=== PATIENT | female | born 1970 | race Caucasian/White ===

== ENCOUNTER → 2018-02-10 08:14 | Outpatient (CLI) | payer BC, SELFPAY ==
[2018-02-10 09:59] LABS: Cholesterol 320 mg/dL (140-199); HDL Cholesterol 58 mg/dL (40-60); LDL Cholesterol Calculated 192 mg/dL (<100); Triglycerides 349 mg/dL (35-150)
== END ==
PROVIDERS: PCP Family Medicine; Visit Provider Naturopath
DX: E78.5 Hyperlipidemia, unspecified (principal)
CPT/HCPCS: 36415; 80061

== ENCOUNTER → 2018-02-26 19:17 | Outpatient (CLI) | payer BC, SELFPAY ==
--- NOTE | 2018-02-26 19:27 | DI.MRI.S_ITS ---
PROCEDURE: MR LUMBAR SPINE WO CON INDICATIONS: LOW BACK PAIN TECHNIQUE: Noncontrast sagittal T1 spin echo and T2 fast echo, sagittal STIR, axial T1 and T2 fast spin echo through the lumbar spine. In cases with scoliosis, additional coronal T2 fast spin echo may be performed. COMPARISON: None. FINDINGS: Image quality: Excellent. Alignment and Curvature: There is normal bony alignment. Bone Marrow: There are degenerative endplate signal changes. Multiple Schmorl's nodes are present in lower thoracic and lumbar spine. Mild compression deformity of T12, L1, L2 and L4 without marrow edema. Spinal Cord: Conus medullaris terminates at the L1 level. Visualized cord demonstrates normal signal and size. Paraspinous Soft Tissues: No paravertebral masses. T11-T12: Moderate loss of disc height and disc desiccation. The central canal is mildly narrowed. No foraminal stenosis. T12-L1: Moderate loss of disc height and disc desiccation. There is broad posterior disc bulge and disc osteophyte complex. The central canal is bnyt-qi-wspprpolui narrowed. Mild bilateral foraminal stenosis. L1-L2: Preserved disc height. Mild/moderate disc desiccation. There is broad posterior disc bulge and disc osteophyte complex. There is superimposed posterior central annular tear. The central canal is mildly narrowed. Mild to moderate bilateral foraminal stenosis. L2-L3: Preserved disc height. Mild/moderate disc desiccation. There is mild posterior disc bulge. The central canal is patent. Mild bilateral foraminal stenosis. L3-L4: Preserved disc height. Mild/moderate disc desiccation. There is broad posterior disc bulge and disc osteophyte complex. The central canal is mildly narrowed. Iifx-xz-iwpmxzdd bilateral foraminal stenosis. L4-L5: Preserved disc height and mild disc desiccation. There is posterior lateral disc bulge, left greater than right. Mild bilateral facet arthropathy. The central canal is patent. Moderate left and mild right foraminal stenosis. L5-S1: Preserved disc height and mild disc desiccation. There is minimal disc bulge, Mild bilateral facet arthropathy. The central canal is patent. No foraminal stenosis. IMPRESSION: 1. Multilevel degenerative disc disease and facet arthropathy as described. 2. Mild to moderate central canal stenosis at several levels. 3. Multilevel foraminal stenoses as described, moderate at L4-L5 on the left and mild at several other levels. 4. Mild compression deformity of T12, L1, L2 and L4 without marrow edema, likely chronic compression fractures. Dictated by: Char Vogel M.D. on 03/01/2018 at 10:55 Transcribed by: VIOLA on 03/01/2018 at 11:05 Approved by: Char Vogel M.D. on 03/01/2018 at 11:25
== END ==
PROVIDERS: Family Provider Family Medicine; PCP Family Medicine; Visit Provider Anesthesiology Pain Medicine
DX: M48.061 Spinal stenosis, lumbar region without neurogenic claudication (principal); M51.36 Other intervertebral disc degeneration, lumbar region; M54.5 Low back pain
CPT/HCPCS: 72148

== ENCOUNTER → 2018-03-05 13:44 | Outpatient (CLI) | payer BC, SELFPAY ==
--- NOTE | 2018-03-05 | DI.MG.S_ITS ---
BILATERAL DIGITAL SCREENING MAMMOGRAM 3D/2D WITH CAD: 03/05/2018 CLINICAL: Routine screening. Family history of breast cancer. Comparison is made to exams dated: 02/16/2017 mammogram, 02/12/2016 mammogram, and 02/09/2015 mammogram - [facility]. There are scattered fibroglandular elements in both breasts. Current study was also evaluated with a Computer Aided Detection (CAD) system. No significant masses, calcifications, or other findings are seen in either breast. There has been no significant interval change. IMPRESSION: NEGATIVE There is no mammographic evidence of malignancy. A 1 year screening mammogram is recommended. This exam was interpreted at Station ID: [id number]. NOTE: For mammograms, a report in lay terms will be sent to the patient. Approximately 15% of breast malignancies will not be visualized mammographically. In the management of a palpable breast mass, a negative mammogram must not discourage biopsy of a clinically suspicious lesion. Electronically Signed By: Justice romeo/dante:03/05/2018 15:25:41 copy to: Kayla Patel letter sent: Normal Exam ACR BI-RADS Category 1: Negative [id number]
== END ==
PROVIDERS: Family Provider Family Medicine; PCP Family Medicine; Visit Provider Family Medicine
DX: Z12.31 Encounter for screening mammogram for malignant neoplasm of breast (principal); Z80.3 Family history of malignant neoplasm of breast
CPT/HCPCS: 77063; 77067

== ENCOUNTER 2018-09-30 14:12 | Outpatient (RCR) | payer BC, SELFPAY ==
--- NOTE | 2018-10-03 18:03 | PT.OIE ---
Current Diagnoses Lumbago with sciatica, left side (09/30/18) Past Medical History (Last Reviewed 08/30/18 @ 13:22 by Alin Bautista PA-C) Anxiety (Chronic 1984) Depression (Chronic) GERD (gastroesophageal reflux disease) (Chronic 2013) Hayfever (Chronic 2004) Hypertension (Chronic 2004) Migraines (Chronic 2004) Achilles rupture, left (Resolved 1988) Chicken pox (Resolved 1972) Fibula fracture (Resolved 2011) Patellar tendon rupture (Resolved 1979) Past Surgical History (Last Reviewed 08/30/18 @ 13:22 by Alin Bautista PA-C) Anesthesia complication (Resolved) History of ankle surgery (Resolved) History of bilateral salpingo-oophorectomy (Resolved 2011) History of hysterectomy, supracervical abdominal (subtotal) (Resolved 2011) History of right knee surgery (Resolved 1979) Status post delivery (Resolved 2002) Status post delivery (Resolved 2008) Status post left foot surgery (Resolved 1988) Provider Visit Care Team Role Provider Type Moon Quiroz MD Primary Care Provider Physician Specialty: Family Practice Address: [address] [place] [address], [facility] Email: Justina Naranjo ND Attending Provider Non-Staff Specialty: Naturopathy Address: [address] [place] [address], [facility] Email: Physical Therapy Initial Evaluation PT-OP-A Visit Information Start: 09/30/18 17:06 Freq: Status: Active Protocol: Document 09/30/18 17:08 [facility] (Rec: 09/30/18 17:27 [facility] [id number]) Out-Patient Physical Therapy Visit Information Visit Information Visit Type Initial Evaluation Visit Note eval for bilateral LBP and left sided SI pain Visit Start Time 14:30 Visit Stop Time 15:15 Total Visit Minutes 45 Visit Number 1 Evaluation Information Evaluation Date 09/30/18 PT-OP-B Current Condition Start: 09/30/18 17:06 Freq: Status: Active Protocol: Document 09/30/18 17:08 [facility] (Rec: 09/30/18 17:27 [facility] [id number]) Current Condition History of Current Condition Onset Date 05/2016 Current Complaints left greater than Right SI and LBP History of Current Condition 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 She notes she had experienced a overall tightness in her spine but was relatively pain free until she took a golf lesson in 2016. During this time she was twising repetitively to the left and she began experiencing her LBP at this time. She has been seeing Abraham Horowitz PT with good success, however he is retired now and Kristine reports even though she is doing her exercises she is feeling pain on the left side of her SI joint. Pain will radiate into the gluteal region wrapping from the ITB to the medial knee. Kristine does state she has had a MRI and it shows multiple compression fractures and a disc bulge Prior Treatments and Tests MRI Treatment Goals Patient/Caregiver Goals goals include being able to return to walking and hiking activities without pain. At this point she is only able to walk on level ground PT-OP-F Manual Assessment Start: 09/30/18 17:06 Freq: Status: Active Protocol: Document 09/30/18 17:08 [facility] (Rec: 09/30/18 17:27 [facility] [id number]) Manual Assessments Soft Tissue Assessment Soft Tissue Mobility Assessment left quadratus lumborum, bilateral paraspinals, and piriformis tightness and myofascial restrictions Joint Mobility Assessment Joint Mobility Assessment left pelvic upslip decreased lumbar sidebending to the right, the left pelvis wants to elevate with sidebending, increased lumbar lordosis PT-OP-J Posture/Palpation/Skin Start: 09/30/18 17:06 Freq: Status: Active Protocol: Document 09/30/18 17:08 [facility] (Rec: 09/30/18 17:27 [facility] [email or web address]) Posture Evaluation Position Standing Evaluation View Posterior L-Spine Posture Increased Lordosis Palpation Assessment Location One Palpation Location Left PSIS, low back, buttocks, hip IT band, sartorius, MCL Palpation Findings Soft Tissue Tightness Muscle Guarding Tenderness PT-OP-K Range of Motion Start: 09/30/18 17:06 Freq: Status: Active Protocol: Document 09/30/18 17:08 [facility] (Rec: 09/30/18 17:27 [facility] [id number]) Lumbar Spine Range of Motion Lumbar Spine Active Testing Position Standing Lateral Flexion Left 20 Lateral Flexion Right 10 ROM Limitations Soft Tissue Tightness Comments lumbar spine held in extension , limited flexion of the L3-L5 PT-OP-M Strength Start: 09/30/18 17:06 Freq: Status: Active Protocol: Document 09/30/18 17:08 [facility] (Rec: 10/03/18 18:02 [facility] [email or web address]) Trunk Strength Trunk Manual Muscle Testing Core Stabilization weakness in the inner core stabilizers with + ASLR and standing march test on the left Difficulty recruiting the Transverse abdominal muscular without global substitution PT-OP-Q Treatments Start: 09/30/18 17:06 Freq: Status: Active Protocol: Document 09/30/18 17:08 [facility] (Rec: 09/30/18 17:27 [facility] [email or web address]) Therapeutic Exercises Sitting Exercises 1 Sitting Exercise Name seated sidebending stretch Side left Comments sidebend to the right side to stretch left Other Exercises 2 Other Exercise Name prayer stretch Side right Comments move to the right side to stretch out the left lateral spine 1 Other Exercise Name quadraped cat cow and sidebends Side bilateral Reps/Minutes 10 reps each Manual Therapy Treatment Manual Techniques 2 Type QL release and mobilizations of the left pelvis in a downward direction Body Position Sidelying 1 Type MET right anterior rotation Body Position Hooklying Reps/Duration x 5 reps Comments pt to do ball squeeze at home PT-OP-T Assessment and Plan Start: 09/30/18 17:06 Freq: Status: Active Protocol: Document 09/30/18 17:08 [facility] (Rec: 10/03/18 17:44 [facility] [email or web address]) Physical Therapy Assessment Rehab Potential Rehabilitation Potential Excellent Evaluation Complexity Number of Personal Factors/Comorbidities 0 Number of Body Systems Impaired 1-2 Clinical Presentation at Evaluation Stable Impairments Impairments Activity Tolerance Functional Mobility Posture ROM Soft Tissue Mobility Strength Other Concerns Barriers to Rehabilitation history of lumbar compression fractures and disc bulge Goals Four Impairment pain with walking on uneven surfaces or with hiking Fdc Goal (LTG) Kristine is able to provide adequate stabilization to the SI joint byu strengthening the inner core musculature that she is able to return to hiking without pain. LTG Duration 8 weeks Three Impairment SI dysfunction with left sided upslip Fdc Goal (LTG) Correct SI dysfunction and Kristine is able to work on stabilizing musculature for the SI joint to help keep her in alignment LTG Duration 6-8 weeks Two Impairment guarding and tightness of the lumbar paraspinals, left QL and piriformis Short Term Goal (STG) reduce tissue tightness and guarding with manual therapy techniques and stretches STG Duration 6 weeks One Impairment pain rated 5-6/10 left LB, SI joint, gluteals and into the medial knee Short Term Goal (STG) With flexion based stretches and manual therapy work Kristine is able to reduce her pain symptoms from 5-6/10 to 1-2/10 STG Duration 6 weeks Assessment Summary Assessment Kristine presents to physical therapy today with signs and symptoms consistent with SI dysfunction. 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 Her symptoms began in March 2016 after she took a golf lesson and twisted many times to the left to hit the golf ball. She has seen Abraham Horowitz PT with good results but since he has retired she has tried doing the exercises on her own. Her pain has increased and spread into the gluteal region, hip, ITB, and the medial knee. She has increased pain walking on uneven surfaces and hiking. With examination today Kristine stands in a exaggerated lumbar lordosis and has decreased lumbar flexion at L5-S1 most likely from years of gymastics . Her left pelvis is elevated and there is muscle guarding in the quadratus lumborum on the left. She also presents with hypertone of the lumbar paraspinals and guarding in the piriformis region. With MMT she is slightly weaker on the left LE than the right. She is weak in the inner core and has a positive march test on the left LE. She is a good candidate for Physical Therapy Physical Therapy Plan Frequency and Duration Frequency of Treatment 1x/Week Duration of Treatment 8 weeks Plan of Care Start Date 09/30/18 Plan of Care End Date 10/25/18 Therapeutic Interventions Therapeutic Interventions Home Exercise Program Manual Therapy Neuromuscular Re-education Patient/Caregiver Education Soft Tissue Mobilization Taping Therapeutic Exercises Next Visit Focus/Plan Next Note Type Treatment Note Next Visit Plan began TA and pelvic floor facilitation next visit, review stretches
--- NOTE | 2018-10-03 18:05 | PT.OPPOC ---
Current Diagnoses Lumbago with sciatica, left side (09/30/18) Provider Visit Care Team Role Provider Type Moon Quiroz MD Primary Care Provider Physician Specialty: Family Practice Address: [address] [place] [address], [id number] Email: Justina Naranjo ND Attending Provider Non-Staff Specialty: Naturopathy Address: [address] [place] [address], [facility] Email: Plan Of Care PT-OP-T Assessment and Plan Start: 09/30/18 17:06 Freq: Status: Active Protocol: Document 09/30/18 17:08 [facility] (Rec: 10/03/18 17:44 [facility] [id number]) Physical Therapy Assessment Rehab Potential Rehabilitation Potential Excellent Evaluation Complexity Number of Personal Factors/Comorbidities 0 Number of Body Systems Impaired 1-2 Clinical Presentation at Evaluation Stable Impairments Impairments Activity Tolerance Functional Mobility Posture ROM Soft Tissue Mobility Strength Other Concerns Barriers to Rehabilitation history of lumbar compression fractures and disc bulge Goals Four Impairment pain with walking on uneven surfaces or with hiking Longterm Goal (LTG) Kristine is able to provide adequate stabilization to the SI joint by strengthening the inner core musculature that she is able to return to hiking without pain. LTG Duration 8 weeks Three Impairment SI dysfunction with left sided upslip Longterm Goal (LTG) Correct SI dysfunction and Kristine is able to work on stabilizing musculature for the SI joint to help keep her in alignment LTG Duration 6-8 weeks Two Impairment guarding and tightness of the lumbar paraspinals, left QL and piriformis Short Term Goal (STG) reduce tissue tightness and guarding with manual therapy techniques and stretches STG Duration 6 weeks One Impairment pain rated 5-6/10 left LB, SI joint, gluteals and into the medial knee Short Term Goal (STG) With flexion based stretches and manual therapy work Kristine is able to reduce her pain symptoms from 5-6/10 to 1-2/10 STG Duration 6 weeks Assessment Summary Assessment Kristine presents to physical therapy today with signs and symptoms consistent with SI dysfunction. 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 Her symptoms began in March 2016 after she took a golf lesson and twisted many times to the left to hit the golf ball. She has seen Abraham Horowitz PT with good results but since he has retired she has tried doing the exercises on her own. Her pain has increased and spread into the gluteal region, hip, ITB, and the medial knee. She has increased pain walking on uneven surfaces and hiking. With examination today Kristine stands in a exaggerated lumbar lordosis and has decreased lumbar flexion at L5-S1 most likely from years of gymnastics . Her left pelvis is elevated and there is muscle guarding in the quadratus lumborum on the left. She also presents with hypertone of the lumbar paraspinals and guarding in the piriformis region. With MMT she is slightly weaker on the left LE than the right. She is weak in the inner core and has a positive march test on the left LE. She is a good candidate for Physical Therapy Physical Therapy Plan Frequency and Duration Frequency of Treatment 1x/Week Duration of Treatment 8 weeks Plan of Care Start Date 09/30/18 Plan of Care End Date 10/25/18 Therapeutic Interventions Therapeutic Interventions Home Exercise Program Manual Therapy Neuromuscular Re-education Patient/Caregiver Education Soft Tissue Mobilization Taping Therapeutic Exercises Next Visit Focus/Plan Next Note Type Treatment Note Next Visit Plan began TA and pelvic floor facilitation next visit, review stretches Plan of Care Dates Plan of Care Start Date 09/30/18 Plan of Care End Date 10/25/18 Please Sign and Return: I have reviewed this Plan of Care and certify that the skilled therapy services above are required to meet the patient?s needs. Physician Signature Date Printed Name and Credentials Clinical Instructor Signature Printed Name and Credentials
--- NOTE | 2019-08-09 08:36 | PT.OPDS ---
Current Diagnoses Lumbago with sciatica, left side (09/30/18) Visit Care Team Role Provider Type Moon Quiroz MD Primary Care Provider Physician Specialty: Family Practice Address: [address] [place] [address], [facility] [place], [address] Email: 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 She notes she had experienced a overall tightness in her spine but was relatively pain free until she took a golf lesson in 2015. During this time she was twising repetitively to the left and she began experiencing her LBP at this time. She has been seeing Abraham Horowitz however he is retired now and Kristine reports even though she is doing her exercises she is feeling pain on the left side of her SI joint. Pain will radiate into the gluteal region wrapping from the ITB to the medial knee. Kristine does state she has had a MRI and it shows multiple compression fractures and a disc bulge Prior Treatments and Tests MRI Treatment Goals Patient/Caregiver Goals goals include being able to return to walking and hiking activities without pain. At this point she is only able to walk on level ground PT-OP-F Manual Assessment Start: 09/30/18 17:06 Freq: Status: Active Protocol: Document 09/30/18 17:08 [facility] (Rec: 09/30/18 17:27 [facility] [email or web address]) Manual Assessments Soft Tissue Assessment Soft Tissue Mobility Assessment left quadratus lumborum, bilateral paraspinals, and piriformis tightness and myofascial restrictions Joint Mobility Assessment Joint Mobility Assessment left pelvic upslip decreased lumbar sidebending to the right, the left pelvis wants to elevate with sidebending, increased lumbar lordosis PT-OP-J Posture/Palpation/Skin Start: 09/30/18 17:06 Freq: Status: Active Protocol: Document 09/30/18 17:08 [facility] (Rec: 09/30/18 17:27 [facility] [email or web address]) Posture Evaluation Position Standing Evaluation View Posterior L-Spine Posture Increased Lordosis Palpation Assessment Location One Palpation Location Left PSIS, low back, buttocks, hip IT band, sartorius, MCL Palpation Findings Soft Tissue Tightness,Muscle Guarding,Tenderness PT-OP-K Range of Motion Start: 09/30/18 17:06 Freq: Status: Active Protocol: Document 09/30/18 17:08 [facility] (Rec: 09/30/18 17:27 AM[facility] [email or web address]) Lumbar Spine Range of Motion Lumbar Spine Active Testing Position Standing Lateral Flexion Left 20 Lateral Flexion Right 10 ROM Limitations Soft Tissue Tightness Comments lumbar spine held in extension , limited flexion of the L3-L5 PT-OP-M Strength Start: 09/30/18 17:06 Freq: Status: Active Protocol: Document 09/30/18 17:08 [facility] (Rec: 10/03/18 18:02 [facility] [email or web address]) Trunk Strength Trunk Manual Muscle Testing Core Stabilization weakness in the inner core stabilizers with + ASLR and standing march test on the left Difficulty recruiting the Transverse abdominal muscular without global substitution PT-OP-T Assessment and Plan Start: 09/30/18 17:06 Freq: Status: Active Protocol: Document 08/09/19 08:35 [facility] (Rec: 08/09/19 08:36 AMH [email or web address]) Physical Therapy Plan Discharge Physical Therapy Discharge Reasons No Longer Attending PT Discharge Comments The patient was seen for her initial evaluation only and did not receive any further care. She will be discharged from PT at this time
== END 2019-08-12 12:26 ==
LOC: PHYS 14:12
PROVIDERS: PCP Family Medicine; Visit Provider Naturopath
DX: M54.42 Lumbago with sciatica, left side (principal)
CPT/HCPCS: 97110; 97161

== ENCOUNTER 2019-01-07 06:50 | Day surgery (SDC) | payer BC, SELFPAY ==
--- NOTE | 2019-01-07 | PATH_ITS ---
[facility] Accession Number: [id number] . 01 Material submitted: . PART A: duodenum bulb - DUODENAL BULB PART B: colon - COLON POLYP AT 85CM . 02 Diagnosis: A. Duodenal Bulb, Biopsy: Gastric heterotopia. Negative for active inflammation, features of sprue, dysplasia or malignancy. . B. Colon at 85 cm, Polyp: Serrated lesion, cannot exclude sessile serrated adenoma. MRV/01/10/2019 . 02 Electronically signed: . Dedrick Alfaro MD, PhD, Pathologist NPI- [id number] . 01 Gross description: . Part A: DUODENAL BULB: Received in formalin are 2 fragment(s) of lópez, soft tissue measuring 0.2 x 0.2 x 0.2 cm to 0.3 x 0.1 x 0.1 cm which is entirely submitted and submitted entirely in 1 cassette(s) Part B: COLON POLYP AT 85CM: Received in formalin are multiple fragment(s) of lópez, soft tissue measuring 0.1 x 0.1 x 0.1 cm to 0.3 x 0.3 x 0.2 cm which is entirely submitted and submitted entirely in 1 cassette(s) /DMC /DMC . 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 02 CPT . 114964, [id number] Performed at: 01 [facility] [address], [place], [place] [id number] MD Abdias Collazo MD Phone: [phone] Performed at: 02 [facility] [address] , [place], [place] [id number] MD Amy Fields MD Phone: [phone]
[2019-01-07 07:15] VITALS: BMI 32.2
[2019-01-07 07:19] VITALS: BP 131/82; PULSE 92; RESP 12; TEMP 36.2; O2SAT 98
[2019-01-07] MEDS: SODIUM CHLORIDE 0.9% 1,000 ML 84 ML IV (07:31)
--- NOTE | 2019-01-07 07:54 | PM.PREOP ---
Pre-operative Note Interval Note History & Physical reviewed/Exam performed by Physician: Yes Changes to H&P: No ASA Class (for procedural sedation): II
[2019-01-07] MEDS: TETRACAINE/BENZOCAINE/BUTAMBEN (CETACAINE) BOTTLE 1 SPRAY TOP (07:59)
[2019-01-07] MEDS: LIDOCAINE 4% SOLN 50 ML 20 ML TOP (07:59)
[2019-01-07] MEDS: fentaNYL 250 MCG/5 ML INJ IV (08:59)
[2019-01-07] MEDS: MIDAZOLAM 5 MG/5 ML VIAL IV (09:00)
--- NOTE | 2019-01-07 09:02 | PM.OP.ENDO ---
Operative Date/Time/Diagnoses Date of procedure: 01/07/19 Time of procedure: 09:02 Pre-op diagnosis: Taylor Syndrome Post-op diagnosis: same (Colonic polyps.) Procedure & Clinicians Study performed: EGD with biopsy cold. Colonoscopy with cold biopsy Same procedure as scheduled: Yes Indications: Taylor syndrome Surgeon: Alen Castro Procedure Notes Procedure in detail: The patient was placed in left lateral decubitus position after having topical anesthetic applied to oropharynx. Bite block was inserted. The scope was advanced into the esophagus under direct vision. the esophagus was normal. GE junction at 36 cm. There was a fairly sharp demarcation between the esophagus and the gastric lining mucosa. These stomach insufflated well. There were no lesions seen in the body and antrum. The pyloric channel was widely patent. advanced through the pylorus the 4th part of the duodenum. The papilla was prominent but normal in appearance. There was some wore old appearing glandular tissue in the distal bulb. I biopsied this area but suspected maybe Amber's glands. The scope was brought back into the stomach and retroflexed. The proximal stomach was normal in appearance. There was no evidence of a hiatal hernia. the scope was slowly removed and the patient tolerated the procedure well. The air was evacuated from the stomach prior to removing the scope. The patient was repositioned and given additional sedation. Digital exam of the rectum was unremarkable. The scope was inserted advanced through the rectum into the sigmoid. There was early looping of the colon. Stiffener was inserted we are able to advance after repositioning the patient lying pressure through the descending transverse and ascending colon ultimately reaching the cecum. The cecum was identified by the ileocecal valve appendiceal opening. The valve was cannulated and the terminal ileum was normal in appearance. The colon had the impression of very mild melanosis. The scope was gradually brought out. At 85 cm there was a small polypoid lesion which I biopsied and appeared to be completely removed. the scope was gradually brought out and retroflexed in the rectum. There was some scarring on old internal hemorrhoids but no evidence of active disease. The scope was removed and the patient tolerated the procedure well. Scope withdrawal time: 13.5 minutes Sedation minutes: 51 Findings: polyp (Colonic. 85 cm) and other findings (Slight irregularity in the duodenum) Specimen(s): other (Duodenal biopsies and colonic polyp) Complications: none Recommendations: Colonscopy in 1 year, EGD in 1 year and Other recommendation (Consider deep sedation for future exams.) Follow up: as needed Disposition: PACU
[2019-01-07 09:03] VITALS: BP 127/80; PULSE 80; RESP 16; TEMP 37.5; O2SAT 98
[2019-01-07 09:07] VITALS: BP 136/89; PULSE 93; RESP 17; TEMP 37; O2SAT 97
[2019-01-07 09:12] VITALS: BP 124/77; PULSE 83; RESP 16; O2SAT 95
[2019-01-07 09:17] VITALS: BP 118/75; PULSE 82; RESP 17; TEMP 36.9; O2SAT 95
[2019-01-07 09:28] VITALS: BP 127/77; PULSE 71; RESP 17; TEMP 36.4; O2SAT 97
--- NOTE | 2019-01-12 12:19 | P.HP_ITS ---
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 This is the 1st time for both. Patient History Medical History Anxiety (Chronic 1984) Depression (Chronic) GERD (gastroesophageal reflux disease) (Chronic 2013) Hayfever (Chronic 2004) Hypertension (Chronic 2004) Migraines (Chronic 2004) PMS2-related Taylor syndrome (HNPCC4) (Chronic) Achilles rupture, left (Resolved 1988) Chicken pox (Resolved 1972) Fibula fracture (Resolved 2011) Patellar tendon rupture (Resolved 1979) Surgical History Anesthesia complication (Resolved) History of ankle surgery (Resolved) History of bilateral salpingo-oophorectomy (Resolved 2011) History of hysterectomy, supracervical abdominal (subtotal) (Resolved 2011) History of right knee surgery (Resolved 1979) Status post delivery (Resolved 2002) Status post delivery (Resolved 2008) Status post left foot surgery (Resolved 1988) Family History Brother Age: 50 Hypertension High cholesterol Anxiety Father Skin cancer Heart disease Hypertension High cholesterol Stroke Depression Grandfather Heart disease Hypertension High cholesterol Grandmother Cancer Stroke Colon cancer Mother Age: 75 Seizures Hypertension Uterine cancer Grandfather Cancer Lung cancer Grandmother Breast cancer Heart disease Hypertension High cholesterol Anxiety Depression History of heart surgery Social History marital status: household members: spouse and family Smoking Status: Never smoker Family & Social History Family History Brother Age: 50 Hypertension High cholesterol Anxiety Father Skin cancer Heart disease Hypertension High cholesterol Stroke Depression Grandfather Heart disease Hypertension High cholesterol Grandmother Cancer Stroke Colon cancer Mother Age: 75 Seizures Hypertension Uterine cancer Grandfather Cancer Lung cancer Grandmother Breast cancer Heart disease Hypertension High cholesterol Anxiety Depression History of heart surgery Social History: household members spouse,family Tobacco & Substance use: Smoking Status Never smoker Meds Home Medications Medication Instructions Recorded Confirmed Type multivitamin 1 tab PO DAILY #0 10/19/12 01/07/19 History cetirizine 10 mg PO DAILY #0 07/20/17 01/07/19 History lisinopril 10 mg tablet 10 mg PO QDAY #90 tab 03/22/18 01/07/19 Rx fremanezumab-vfrm 225 mg/1.5 mL 675 mg SUBCUT QMONTH #4.5 ml 10/13/18 01/07/19 Rx subcutaneous syringe Premarin 0.9 mg PO QDAY #90 tab 11/25/18 01/07/19 Rx amitriptyline 50 mg tablet 40 mg PO DAILY 11/30/18 01/07/19 History atorvastatin 10 mg tablet 10 mg PO DAILY 11/30/18 01/07/19 History clonazepam 0.25 mg PO BEDTIME 01/07/19 01/07/19 History Allergies Allergy/AdvReac Type Severity Reaction Status Date / Time No Known Drug Allergies Allergy Verified 01/07/19 07:10 Review of Systems Review of Systems All systems reviewed & are unremarkable except as noted in HPI and below Exam Vital Signs (past 8 hours): Oxygen Delivery Method Room Air Narrative Exam Narrative: Cooperative woman in no apparent distress. Little overweight. Her lungs are clear to auscultation. Heart regular rate and rhythm without murmur gallop. Abdomen is soft nontender protuberant without mass. Alert and oriented x3. Assessment & Plan (1) Taylor syndrome: Current visit: Yes Status: Chronic Assessment & Plan narrative: Patient here for EGD and colonoscopy. She understand risks and benefits. They were explained. All questions were an swered.
== END 2019-01-07 09:51 | disposition home or self-care (01) ==
PROVIDERS: PCP Family Medicine; Referring Provider Obstetrics & Gynecology; Visit Provider Specialist
PROC: 0DJ08ZZ Inspection of Upper Intestinal Tract, Via Natural or Artificial Opening Endoscopic (ICD-10-PCS; CPT 43235; principal; 2019-01-07 07:45)
PROC: 0DJD8ZZ Inspection of Lower Intestinal Tract, Via Natural or Artificial Opening Endoscopic (ICD-10-PCS; CPT 45378; 2019-01-07 07:45)
DX: Z15.09 Genetic susceptibility to other malignant neoplasm (principal); Z12.11 Encounter for screening for malignant neoplasm of colon; D12.6 Benign neoplasm of colon, unspecified; K31.7 Polyp of stomach and duodenum; K63.89 Other specified diseases of intestine; F41.9 Anxiety disorder, unspecified; F32.9 Major depressive disorder, single episode, unspecified; K21.9 Gastro-esophageal reflux disease without esophagitis; I10 Essential (primary) hypertension
CPT/HCPCS: 45380; 43239; 99152; 99153; J2250; J3010

== ENCOUNTER → 2019-01-11 08:28 | Outpatient (CLI) | payer BC, SELFPAY ==
[2019-01-11 09:51] LABS: Add Manual Diff / Slide Review NO; Basophils Absolute Auto 0 /uL (0-100); Basophils Percent Auto 0.6 % (0-2); Eosinophils Absolute Auto 0 /uL (0-450); Eosinophils Percent Auto 0.4 % (2-4); Hematocrit 41.7 % (36-46); Lymphocytes Absolute Auto 1400 /uL (1100-4500); Lymphocytes Percent Auto 21.1 % (25-40); Mean Corpuscular HGB Conc 33.6 % (30-36); Mean Corpuscular Hemoglobin 30.1 PG (26-34); Mean Corpuscular Volume 89.5 fL (80-100); Monocytes Absolute Auto 400 /uL (0-900); Monocytes Percent Auto 6.8 % (3-14); Neutrophils Absolute Auto 4600 /uL (1500-7000); Neutrophils Percent Auto 71.1 % (50-75); Platelet Count 299 X10^3/uL (150-400); Red Blood Cell Count 4.66 X10^6/uL (4.0-5.2); Red Cell Distribution Width 12.5 % (11.6-14.8); White Blood Cell Count 6.4 X10^3/uL (4.5-11.0)
[2019-01-11 10:15] LABS: Hemoglobin A1C% w Est Avg Glu 5.2 % (4.0-6.0)
[2019-01-11 10:26] LABS: Alanine Aminotransferase 24 IU/L (9-52); Albumin 4.5 g/dL (3.5-5.0); Albumin Globulin Ratio 1.4 (1.0-2.8); Alkaline Phosphatase 72 U/L (38-126); Aspartate Aminotransferase 28 IU/L (14-36); BUN Creatinine Ratio 16.3 (6-22); Bilirubin Total 0.3 mg/dL (0.2-1.3); Blood Urea Nitrogen 13 mg/dL (7-17); Calcium 9.5 mg/dL (8.4-10.2); Carbon Dioxide 26 mmol/L (22-32); Chloride 102 mmol/L (98-107); Cholesterol 198 mg/dL (140-199); Estimated Glomerular Filt Rate > 60.0 mL/min (>60); Globulin 3.2 g/dL (1.7-4.1); Glucose 99 mg/dL (70-100); HDL Cholesterol 60 mg/dL (40-60); HEMOLYSIS < 15 (0-50); LDL Cholesterol Calculated 112 mg/dL (<100); Potassium 4.1 mmol/L (3.4-5.1); Sodium 138 mmol/L (137-145); Total Protein 7.7 g/dL (6.3-8.2); Triglycerides 132 mg/dL (35-150)
[2019-01-11 10:31] LABS: High Sensitivity CRP - Cardiac 2.1 mg/L (1.0-3.0)
== END ==
PROVIDERS: PCP Family Medicine; Visit Provider Naturopath
DX: Z13.6 Encounter for screening for cardiovascular disorders (principal)
CPT/HCPCS: 36415; 80053; 80061; 83036; 85025; 86140

== ENCOUNTER → 2019-03-07 11:38 | Outpatient (CLI) | payer BC, SELFPAY ==
--- NOTE | 2019-03-07 | DI.MG.S_ITS ---
BILATERAL DIGITAL SCREENING MAMMOGRAM 3D/2D WITH CAD: 03/07/2019 CLINICAL: Routine screening. Family history of breast cancer. Comparison is made to exams dated: 03/05/2018 mammogram, 02/16/2017 mammogram, and 02/12/2016 mammogram - [facility]. There are scattered fibroglandular elements in both breasts. Current study was also evaluated with a Computer Aided Detection (CAD) system. No significant masses, calcifications, or other findings are seen in either breast. There has been no significant interval change. IMPRESSION: NEGATIVE There is no mammographic evidence of malignancy. A 1 year screening mammogram is recommended. This exam was interpreted at Station ID: [id number]. NOTE: For mammograms, a report in lay terms will be sent to the patient. Approximately 15% of breast malignancies will not be visualized mammographically. In the management of a palpable breast mass, a negative mammogram must not discourage biopsy of a clinically suspicious lesion. Electronically Signed By: Abdias redmond/dante:03/07/2019 16:22:59 copy to: CARLEY EATON letter sent: Normal Exam ACR BI-RADS Category 1: Negative [id number]
== END ==
PROVIDERS: PCP Family Medicine; Visit Provider Obstetrics & Gynecology
DX: Z12.31 Encounter for screening mammogram for malignant neoplasm of breast (principal); Z80.3 Family history of malignant neoplasm of breast
CPT/HCPCS: 77063; 77067